=== PATIENT | male | born 1975 | race Caucasian/White ===

== ENCOUNTER 2023-11-22 07:35 | Outpatient (CLI) | payer OTHER, SELFPAY ==
--- NOTE | 2023-11-22 07:47 | ECG_ITS ---
Measurements Intervals [place] Rate: 63 P: 51 MN: 188 QRS: 11 QRSD: 88 T: 50 QT: 370 QTc: 381 Interpretive Statements SINUS RHYTHM NORMAL ECG NO PREVIOUS ECG AVAILABLE FOR COMPARISON Electronically Signed On 11-22-2023 14:43:59 RN ENDOCRINOLOGY by Laurent Barlow M.D.
== END 2023-11-22 07:36 | disposition home or self-care (01) ==
LOC: ANHCARD 07:36
PROVIDERS: PCP Emergency Medicine; Visit Provider Emergency Medicine
DX: R00.2 Palpitations (principal)
CPT/HCPCS: 93005

== ENCOUNTER 2023-12-08 01:28 | Day surgery (SDC) | payer OTHER, SELFPAY ==
[2023-10-21 09:43] VITALS: BMI 25.2
--- NOTE | 2023-12-05 09:13 | SUR.PREOP ---
Patient called regarding upcoming procedure. Voicemail left regarding appointment times.
[2023-12-08 06:47] VITALS: BP 130/87; PULSE 60; RESP 20; TEMP 36.2; O2SAT 100
[2023-12-08] MEDS: LACTATED RINGERS 1,000 ML 150 ML IV CONT (07:00)
--- NOTE | 2023-12-08 07:27 | WPDANESEPPF ---
Anes - Initial Pre Proc Eval Procedure: Operation Date: 12/08/23 08:00 Proposed Procedures p Colonoscopy - Scott Small MD Date/Time: 12/08/23 07:27 Surgeon: Scott Small MD Pre Op Diagnosis: Other fecal abnormalities Patient Data Age: 48 Gender: M Height: 1.93 m Weight: 90.5 kg Last Vital Signs Temp 97.1 F L 12/08/23 06:47 Pulse 60 12/08/23 06:47 Resp 20 12/08/23 06:47 BP 130/87 12/08/23 06:47 Pulse Ox 100 12/08/23 06:47 O2 Del Method Room Air 12/08/23 06:47 Allergies Allergy/AdvReac Type Severity Reaction Status Date / Time No Known Allergies Allergy Mild Verified 12/08/23 06:46 Home Medications Medication Instructions Recorded Confirmed Type testosterone 1 % (50 mg/5 gram) 100 mg transdermal DAILY #5 grams 11/30/20 11/24/23 Rx transdermal gel packet (AndroGel) metoprolol succinate 50 mg 75 mg PO DAILY #135 tabs 08/11/23 11/24/23 Rx tablet,extended release 24 hr (Toprol XL) bupropion HCl 100 mg tablet 100 mg PO BID #180 tabs 11/19/23 11/24/23 Rx allopurinol 300 mg tablet 300 mg PO DAILY 11/24/23 11/24/23 History cholecalciferol (vitamin D3) 25 2,000 unit PO DAILY 11/24/23 11/24/23 History mcg (1,000 unit) capsule (Vitamin D3) sildenafil 50 mg tablet (Viagra) 50 mg PO DAILY PRN Erectile 12/04/23 Rx Dysfunction #30 tabs Patient hx anesthesia problems: none Family hx anesthesia problems: none Results Review: All pre-operative results and documents have been reviewed as part of the pre-operative evaluation. [facility] Past Medical History Medical History Body mass index [BMI] 27.0-27.9, adult (02/27/16) Body mass index [BMI] 28.0-28.9, adult (10/14/17) H/O cancer of gall bladder HTN (hypertension), benign Migraine without aura and with status migrainosus, not intractable Vitamin D deficiency disease Family History Family History Mother Hypertension Social History Social History Smoking status: Never smoker Alcohol intake: current Current Housing: Decline to Answer Concerned About Future Housing: Decline to Answer Difficulty Paying Gas/Electric Bills: Decline to Answer Difficulty Paying for Meds: Decline to Answer Currently Unemployed: Decline to Answer Education: Decline to Answer Difficulty w/ Childcare or Family Care: Decline to Answer Living arrangements: with family Dariana Lynch Final PreProcedure Day of Procedure 12/08/23 07:27 Patient weight: normal Heart: regular rate and rhythm Lungs: clear to auscultation Airway: Mallampati scale class II Neurological: alert and oriented Last oral intake: >/= 8 hours ASA classification: III Emergent: no Anesthetic plan: proceed Anesthesia type and monitoring: general GIVS and standard monitoring Results Review: All pre-operative results and documents have been reviewed as part of the pre-operative evaluation. Informed Consent: The patient's anesthetic plan and its attendant risks and benefits were discussed with the patient/family/POA. Questions were solicited and answers provided to the satisfaction of the patient/family/POA.
--- NOTE | 2023-12-08 07:52 | PM.HPGS ---
History of Present Illness History of Present Illness Consent: Risks, benefits, and alternatives have been discussed and questions answered. Patient agrees to proceed with procedure. Chief complaint: Other fecal abnormalities Narrative: Dano Jasso is a 48 year old male here for first colonoscopy, had + cologuard Review of Systems Constitutional: Constitutional: Denies headache(s) and Denies weakness Eyes: Eyes: Denies blurry vision ENT: Reports Normal hearing present, Denies headache(s) and Denies neck pain Cardiovascular: Cardiovascular: Denies chest pain and Denies dyspnea Respiratory: Respiratory: Denies dyspnea Gastrointestinal: Gastrointestinal: Reports no additional gastrointestinal complaints Genitourinary: Genitourinary: Denies dysuria Musculoskeletal: Musculoskeletal: Denies neck pain Integumentary/Breasts: Skin/Breast: Denies dry skin Neurologic: Reports Normal hearing present, Denies headache(s) and Denies weakness Psychiatric: Psychiatric: Denies anxiety Endocrine: Endocrine: Denies change in body appearance Hematologic/Lymphatic: Hematologic/Lymphatic: Denies easy bleeding Allergic/Immunologic: Allergic/Immunologic: Denies urticaria PMFSH Past Medical History Medical History (Updated 12/08/23 @ 07:54 by Scott Small MD) Body mass index [BMI] 27.0-27.9, adult (02/27/16) Body mass index [BMI] 28.0-28.9, adult (10/14/17) H/O cancer of gall bladder HTN (hypertension), benign Migraine without aura and with status migrainosus, not intractable Positive colorectal cancer screening using Cologuard test Vitamin D deficiency disease Family History Family History Mother Hypertension Social History Social History Smoking status: Never smoker Alcohol intake: current Current Housing: Decline to Answer Concerned About Future Housing: Decline to Answer Difficulty Paying Gas/Electric Bills: Decline to Answer Difficulty Paying for Meds: Decline to Answer Currently Unemployed: Decline to Answer Education: Decline to Answer Difficulty w/ Childcare or Family Care: Decline to Answer Living arrangements: with family Meds Home Medications and Allergies Home Medications Medication Instructions Recorded Confirmed Type testosterone 1 % (50 mg/5 gram) 100 mg transdermal DAILY #5 grams 11/30/20 11/24/23 Rx transdermal gel packet (AndroGel) metoprolol succinate 50 mg 75 mg PO DAILY #135 tabs 08/11/23 11/24/23 Rx tablet,extended release 24 hr (Toprol XL) bupropion HCl 100 mg tablet 100 mg PO BID #180 tabs 11/19/23 11/24/23 Rx allopurinol 300 mg tablet 300 mg PO DAILY 11/24/23 11/24/23 History cholecalciferol (vitamin D3) 25 2,000 unit PO DAILY 11/24/23 11/24/23 History mcg (1,000 unit) capsule (Vitamin D3) sildenafil 50 mg tablet (Viagra) 50 mg PO DAILY PRN Erectile 12/04/23 Rx Dysfunction #30 tabs Allergies Allergy/AdvReac Type Severity Reaction Status Date / Time No Known Allergies Allergy Mild Verified 12/08/23 06:46 Vital Signs Vital Signs - 24 hr 12/08/23 06:47 Temperature 97.1 F L Pulse Rate 60 Respiratory Rate 20 Blood Pressure 130/87 Pulse Oximetry 100 Oxygen Delivery Room Air Exam Const: General: comfortable and no acute distress HENMT: Face/Nose/Sinus: Normal nares present Eyes: General: appearance normal, both eyes and all related structures Neck: Neck: no JVD Resp: Auscultation: clear to auscultation bilaterally Cardio: Rate: regular rate Rhythm: regular rhythm GI: Inspection: non-distended GI Palp: Yes Soft to palpation Skin: General skin exam: normal color Neuro: General: gait normal Speech: normal speech Extrem: General: normal to inspection Psych: Mental Status: mental status grossly normal Assessment and Plan Assessment and plan (1) Positive colorectal cancer scre
[2023-12-08 08:15] VITALS: BP 93/56; PULSE 64; RESP 20; O2SAT 100
[2023-12-08 08:25] VITALS: BP 117/70; PULSE 73; RESP 20; O2SAT 100
[2023-12-08 08:35] VITALS: BP 115/79; PULSE 69; RESP 20; O2SAT 100
== END 2023-12-08 08:48 | disposition home or self-care (01) ==
PROVIDERS: PCP Emergency Medicine; Visit Provider Internal Medicine Gastroenterology
PROC: 0DJD8ZZ Inspection of Lower Intestinal Tract, Via Natural or Artificial Opening Endoscopic (ICD-10-PCS; CPT 45378; principal; 2023-12-08 08:00)
DX: R19.5 Other fecal abnormalities (principal); K64.8 Other hemorrhoids; I10 Essential (primary) hypertension; E55.9 Vitamin D deficiency, unspecified; G43.901 Migraine, unspecified, not intractable, with status migrainosus; Z85.09 Personal history of malignant neoplasm of other digestive organs
CPT/HCPCS: 45378; J2704; J7120

== ENCOUNTER 2024-01-03 20:58 | Emergency (ER) | payer OTHER, SELFPAY ==
--- NOTE | ~2024-01-03 | XR_ITS ---
EXAMINATION: XR chest 2V Exam Date/Time: 01/03/2024 21:25 CDT HISTORY: CP, SOB/ RIGHT SIDED CHEST PAIN . Comparison: 05/12/2005, report only. RESULT: Lines, tubes, and devices: None. Lungs and pleura: Clear. Cardiomediastinal silhouette: Unremarkable. Other: No acute osseous or upper abdominal finding. IMPRESSION: No acute cardiopulmonary process. Reviewed, dictated and finalized at location K.
--- NOTE | 2024-01-03 21:02 | ECG_ITS ---
Measurements Intervals [place] Rate: 53 P: 57 CT: 182 QRS: -16 QRSD: 94 T: 45 QT: 380 QTc: 364 Interpretive Statements SINUS BRADYCARDIA BORDERLINE ECG SEE SCANNED COPY FOR SIGNATURE MTDD
[2024-01-03] MEDS: ASPIRIN 81 MG CHEWABLE TABLET 324 MG PO (21:07)
[2024-01-03 21:08] VITALS: BP 137/89; PULSE 64; RESP 16; TEMP 36.6; O2SAT 100
[2024-01-03 21:12] LABS: Basophils Percent Auto 0.2 % (0.2-1.2); Eosinophils Absolute Auto 0.1 K/mm3 (0-0.3); Eosinophils Percent Auto 2.1 % (0-4.4); Hemoglobin 15.5 g/dL (14.0-18.0); Immature Granulocyte Absolute 0.01 K/mm3 (0.00-0.031); Immature Granulocyte Percent A 0.2 % (0-0.5); Lymphocytes Absolute Auto 1.78 K/mm3 (0.9-3.2); Lymphocytes Percent Auto 28.1 % (18.3-44.2); Mean Corpuscular HGB Conc 34.4 g/dl (32-36); Mean Corpuscular Hemoglobin 31.9 pg (26-34); Mean Corpuscular Volume 92.6 fl (80-100); Monocytes Absolute Auto 0.6 K/mm3 (0.1-0.6); Monocytes Percent Auto 8.7 % (2.6-8.5); Neutrophils Absolute Auto 3.9 K/mm3 (1.3-6.7); Neutrophils Percent Auto 60.7 % (45.5-73.1); Platelet Count Result 169 k/mm3 (150-375); Red Blood Count 4.86 M/mm3 (4.6-6.20); Red Cell Distribution Width 12.8 % (11.5-14.5); White Blood Count 6.3 K/mm3 (4.5-10.0)
[2024-01-03 21:24] LABS: Alanine Aminotransferase 26 U/L (6-50); Albumin Level 4.3 g/dL (3.5-5.1); Alkaline Phosphatase 53 U/L (38-126); Anion Gap 5 mmol/L (4-12); Aspartate Amino Transferase 31 U/L (17-59); Bilirubin,Total 0.7 mg/dL (0.2-1.3); Blood Urea Nitrogen 15 mg/dL (9-20); Calcium 9.2 mg/dL (8.4-10.2); Carbon Dioxide 31 mmol/L (22-30); Chloride 104 mmol/L (98-107); Estimated CRCL calculation 100 ml/min; Estimated Glomerular Filt Rate > 60; Glucose 100 mg/dL (65-110); INR 1.1; Lipase 134 U/L (23-300); Potassium 3.8 mmol/L (3.4-5.0); Prothrombin Time 14.5 Seconds (11.1-14.7); Sodium 140 mmol/L (137-145)
[2024-01-03 21:25] LABS: Partial Thromboplastin Time 30.6 Seconds (22.3-36.8)
[2024-01-03 21:35] LABS: Troponin I < 0.012 ng/mL (0.000-0.034)
[2024-01-03 23:58] VITALS: BP 126/85; PULSE 56; RESP 19; O2SAT 100
--- NOTE | 2024-01-04 00:02 | ED.CHESTPAIN ---
HPI - Chest Pain General Chief Complaint: Chest Pain Stated Complaint: CP, SOB Time Seen by Provider: 01/03/24 23:52 History of Present Illness HPI narrative: 48-year-old male with a history of hypertension and anxiety presents to the emergency department for chest pain that started at 8:30 p.m. this evening. Patient states he was driving the car on his way [facility] when he began having chest pain in the center of his chest. States it traveled up into the upper aspect of his chest and was associated with shortness of breath and nausea. He denies associated diaphoresis or vomiting. States the symptoms lasted a few hours and have improved within the past hour. He states he is no longer nauseous, denies current dyspnea. He states he still has a subtle sensation of pain in his chest. Describes the pain as a sharp sensation. Denies aggravating or alleviating factors. Denies prior cardiac history, family history of cardiac disease, lower extremity edema, recent surgeries or hospitalizations, smoking. Denies abdominal pain, heartburn, vomiting, fever, cough or congestion. Patient does endorse anxiety and states he is currently feeling anxious. States he took Xanax around 1:00 p.m. today not taking anything since. Related Data Home Medications Medication Instructions Recorded Confirmed allopurinol 300 mg tablet 300 mg PO DAILY 11/24/23 12/16/23 cholecalciferol (vitamin D3) 25 2,000 unit PO DAILY 11/24/23 12/16/23 mcg (1,000 unit) capsule (Vitamin D3) Allergies Allergy/AdvReac Type Severity Reaction Status Date / Time No Known Allergies Allergy Mild Verified 01/03/24 21:04 Review of Systems Review of Systems: CONSTITUTIONAL: Denies fever, chills, or sweats. EYES: Denies visual changes, redness, or discharge. ENT: Denies rhinorrhea, congestion, sore throat, or otalgia. CARDIOVASCULAR: See HPI RESPIRATORY: See HPI GASTROINTESTINAL: Denies abdominal pain, nausea, vomiting, or diarrhea. GENITOURINARY: Denies dysuria or hematuria. SKIN: Denies rash or itching. MUSCULOSKELETAL: Denies back pain, joint pain, or myalgia. NEUROLOGIC: Denies headache, numbness, or weakness. PSYCHIATRIC: Denies anxiety or depression. [facility] Past Medical History Medical History Body mass index [BMI] 27.0-27.9, adult (02/27/16) Body mass index [BMI] 28.0-28.9, adult (10/14/17) H/O cancer of gall bladder HTN (hypertension), benign Migraine without aura and with status migrainosus, not intractable Positive colorectal cancer screening using Cologuard test Vitamin D deficiency disease Family History Family History Mother Hypertension Social History Social History Smoking status: Never smoker Alcohol intake: current Current Housing: Decline to Answer Concerned About Future Housing: Decline to Answer Difficulty Paying Gas/Electric Bills: Decline to Answer Difficulty Paying for Meds: Decline to Answer Currently Unemployed: Decline to Answer Education: Decline to Answer Difficulty w/ Childcare or Family Care: Decline to Answer Living arrangements: with family Exam Narrative: GENERAL: Well-appearing, well-nourished, and in no acute distress. Patient resting comfortably in exam bed. He is pleasant and conversational. Speaking in full sentences. Satting 100% on room air in no respiratory distress. HEAD: Normocephalic, atraumatic. EYES: PERRLA and EOMI. ENT: Nares clear, no rhinorrhea or epistaxis. Mucous membranes moist. NECK: Supple. CHEST: Clear to auscultation. No respiratory distress. Tenderness along the anterior chest wall throughout HEART: Regular rate and rhythm. No murmur heard. Normal peripheral pulses. ABDOMEN: Soft, nontender, nondistended, normal active bowel sounds. EXTREMITIES: Normal range of motion. No edema. Negative Homans
[2024-01-04] MEDS: LORazepam (*CRX) 1 MG TABLET PO (00:12)
[2024-01-04 00:13] VITALS: O2SAT 100
[2024-01-04 00:22] LABS: Troponin I < 0.012 ng/mL (0.000-0.034)
[2024-01-04 00:31] LABS: NT Pro B Type Natriuretic Pept 45 pg/mL (19.9-100)
[2024-01-04 01:30] VITALS: BP 132/94; PULSE 60; RESP 14; O2SAT 97
== END 2024-01-04 01:38 | disposition home or self-care (01) ==
LOC: ANHED 01-04 01:21
PROVIDERS: Emergency Medicine; Emergency Provider Physician Assistant; PCP Emergency Medicine
DX: R07.89 Other chest pain (principal); M94.0 Chondrocostal junction syndrome [Tietze]; F41.9 Anxiety disorder, unspecified; R06.02 Shortness of breath; I10 Essential (primary) hypertension; E55.9 Vitamin D deficiency, unspecified; Z85.09 Personal history of malignant neoplasm of other digestive organs; R00.1 Bradycardia, unspecified
CPT/HCPCS: 36415; 71046; 80053; 83690; 83880; 84484; 85025; 85610; 85730; 93005; 99284; A9270

== ENCOUNTER 2025-02-14 19:34 | Emergency (ER) | payer OTHER, SELFPAY ==
[2025-02-14 19:37] VITALS: BP 137/87; PULSE 77; RESP 17; TEMP 36.4; O2SAT 100
--- OUTSIDE RECORDS SUMMARY | 2025-02-14 19:37 | XMS_ITS | Referral Summary ---
Author Organization [facility] Address [address] [place] [address] Care Team Providers Care Trap Operator Name Role Phone Travis Gan MD Primary Care Provide r Allergies No known active allergies Medications allopurinoL (ZYLOPRIM) 300 mg tabletIndicatio ns:prevention of acute gout attack Take 1 tablet (300 mg total) by mouth every morning 2 Active losartan (COZAAR) 50 mg tabletIndicatio ns:hypertension Take 50 mg by mouth every morning 2 Active cholecalciferol (VITAMIN D-3) 2000 unit capsuleIndicati ons:Vitamin D Deficiency Take 1 capsule (2,000 Units total) by mouth every morning Active ibuprofen (ADVIL,MOTRIN) 200 mg tab/cap Take 4 tablet/capsule (800 mg total) by mouth every 8 (eight) hours as needed for pain Active HYDROcodone-carmen taminophen (NORCO) 5-325 mg per tabletIndicatio ns:Pain TAKE 1-2 TABLETS EVERY 6 HOURS NEEDED FOR PAIN 12 tablet 2 Active Additional Information Patient not taking.Reported on 12/02/2023 oxyCODONE (ROXICODONE) 5 mg immediate release tabletIndicatio ns:Pain Take 1 tablet (5 mg total) by mouth every 4 (four) hours as needed for pain 12 tablet 3 Active Additional Information Patient not taking.Reported on 12/02/2023 Active Problems Patient Care Coordination No te Formatting of this note migh t be different from the original. Tinnitus Problem Noted Date Diagnosed Date S/P arthroscopic partial medial meniscectomy 06/2022 Injury of right knee 12/11/2021 Acute pain of right knee 12/11/2021 Tear of medial meniscus of right knee, current 0 12/11/2021 Sprain of medial collateral ligament of right kn ee 12/11/2021 Social History Tobacco Use Types Packs/Day Years Used Date Smoking Tobacco: Never Smokeless Tobacco: Never AUDIT-C Answer Date Recorded Q1: How often do you have a drink containing alc ohol? 2-3 times a week 01/23/2022 Q2: How many drinks containi ng alcohol do you have on a typical day when you are drinking? 5 or 6 01/23/2022 Q3: How often do you have si x or more drinks on one occasion? Never 01/23/2022 Personal Safety Answer Date Recorded Have you ever been in or are you currently in a harmful physical or emotional relationship or is someone making you feel afraid or unsafe? 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 Gender Identity Not on file Sexual Orientation Not on file Last Filed Vital Signs Vital Sign Reading Time Taken Comments Blood Pressure 134/81 12/02/2023 11:29 AM TAPE CUTTING MACHINE OPERATOR Pulse 66 12/02/2023 11:29 AM TAPE CUTTING MACHINE OPERATOR Temperature 36.9 C (98.5 F) 06/19/2023 11:14 AM CDT Respiratory Rate 18 06/19/2023 11:14 AM CDT Oxygen Saturation 96% 06/19/2023 11:14 AM CDT Inhaled Oxygen Concentration - - Weight 93 kg (205 lb) 12/02/2023 11:29 AM TAPE CUTTING MACHINE OPERATOR Height 193 cm (6' 4 ) 12/02/2023 11:29 AM TAPE CUTTING MACHINE OPERATOR Body Mass Index 24.95 12/02/2023 11:29 AM TAPE CUTTING MACHINE OPERATOR Plan of Treatment Not on file Insurance [facility] 9 [employer] SIG [id number] [place] [id number] WORK[employer] COMPENSATION GENERIC Advance Directives For more information, please contact: [phone] * Full Code (Latest Code Status on File) Date Activated Date Inactivated Comments 01/23/2022 1:50 PM 01/23/2022 7:34 PM Care Teams Trap Operator Relationship Specialty Start Date End Date Travis Gan MD [address] [place] [address] PCP - General Emergency Medicine 11/12/21
--- OUTSIDE RECORDS SUMMARY | 2025-02-14 19:37 | XMS_ITS | Clinical Summary ---
Author Organization [facility] Address [address] [place] [address] Care Team Providers Care Psychology Physician Name Role Phone Travis Gan MD Primary [...] collateral ligament of right kn ee 12/11/2021 Surgical History Surgery Date Site/Laterality Comments BLADDER TUMOR EXCISION 09/29/2002 - 09/28/2003 Medical History Medical History Date Comments Cancer (HCC) 2002 bladder s/p tumo r resection Gout Hypertension well controlled Family History Medical History Relation Name Comments Arthritis Father Arthritis Mother Hypertension Mother Anesthesia problems Neg Hx Relation Name Status Comments Father Mother Social History Tobacco Use Types Packs/Day Years [...] on file 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 Gender Identity Not on file Sexual Orientation Not on file Obstetrics History Last Filed Vital Signs Vital Sign Reading Time Taken Comments Blood Pressure 134/81 12/02/2023 11:29 AM HOOP MAKER MACHINE Pulse 66 12/02/2023 11:29 AM HOOP MAKER MACHINE Temperature 36.9 C (98.5 F) 06/19/2023 11:14 AM CDT Respiratory Rate 18 06/19/2023 11:14 AM CDT Oxygen Saturation 96% 06/19/2023 11:14 AM CDT Inhaled Oxygen Concentration - - Weight 93 kg (205 lb) 12/02/2023 11:29 AM HOOP MAKER MACHINE Height 193 cm (6' 4 ) 12/02/2023 11:29 AM HOOP MAKER MACHINE Body Mass Index 24.95 12/02/2023 11:29 AM HOOP MAKER MACHINE Plan of Treatment Health Maintenance Due Date Last Done Comments Colon Cancer Screening-Colonoscopy 1977 Depression Screening 1977 Hepatitis C Screening 1977 DTaP/Tdap/Td Vaccine (1 - Tdap) 02/02/1988 Hepatitis B Screening 1995 Regular Well Visit/Exam 18-64 1995 Influenza Vaccine (Season Ended) 2025 Pneumococcal vaccine <65 Aged Out No longer eligible based on patient's age to complete this topic Insurance [place] [id number] [place] [address] [employer] SIG [id number] [place] [id number] WORKERS COMPENSATION GENERIC Advance Directives For more information, please contact: [phone] * Full Code (Latest Code Status on File) Date Activated Date Inactivated Comments 01/23/2022 1:50 PM 01/23/2022 7:34 PM Care Teams Psychology Physician Relationship Specialty Start Date End Date Travis Gan MD [address] [place] [address] PCP - General Emergency Medicine 11/12/21
--- OUTSIDE RECORDS SUMMARY | 2025-02-14 19:37 | XMS_ITS | Encounter Summary ---
Author Organization [facility] Address [address] [place] [address] Phone Care Team Providers Care Senior Lead Project Manager Name Role Phone Travis Gan MD Primary Care Provide r Encounter Details Date Type Department Care Team (Late st Contact Info) Description 01/24/2022 Documentation [facility] Orthopaedic Surgery [address] [place] [address] Leatha Orr PTA Social History Tobacco Use Types Packs/Day Years [...] more drinks on one occasion? 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
--- OUTSIDE RECORDS SUMMARY | 2025-02-14 19:37 | XMS_ITS | Patient Health Record ---
Author Organization [facility] [employer] Address [address] [place] [address] Care Team Providers Care Cold Mill Inspector Name Role Phone Travis Gan MD Primary Care Provider Unavail able Margot Cortez Unavailable [phone] Yamile Carlisle Unavailable [phone] Migration, Provider Unavailable Unavailable Allergies No Known Allergies Reason For Referral No Information Medications Medication SIG (Take, Route, Frequency, Duration) Notes Start Date End Date Status TADALAFIL 5 MG TABLET *Reorder from [employer] for eRx and Interaction Alerts* 01/30/2024 Unknown Losartan Potassium 100 MG Oral 01/30/2024 Unknown ALPRAZolam 0.5 MG Oral Ac tive Auvelity 45-105 MG 1 tablet Oral twice a day for 90 days pt has copay card Active Social History Tobacco Use: Social History Observation Description Date Details (start date - stop date) Never Smoker NA - NA Sex Assigned At : Social History Observation Description Sex Assigned At Male Tobacco Control (Standard) Question Answer Notes Tobacco use: Nonsmoker Problems Problem Type SNOMED Code ICD Code Onset Dates Problem Status W/U Status Risk Notes Problem Severe recurrent major depression without psychotic features (13480516) Major depressive disorder, recurrent severe without psychotic features (F33.2) Active confirmed Problem Generalized anxiety disorder (75201762) Generalized anxiety disorder (F41.1) Active confirmed Vital Signs Heart Rate 60 /min 11/26/2024 Blood pressure diastolic 82 mm Hg 11/26/2024 Height-cm 193.04 cm 11/26/2024 Weight-kg 86.64 kg 11/26/2024 Height 76.00 in 11/26/2024 Blood pressure systolic 133 mm Hg 11/26/2024 Weight 191 lbs 11/26/2024 BMI 23.25 kg/m2 11/26/2024 Encounters Encounter Location Date Provider Diagnosis [facility] [address] [place] [address] 04/16/2024 Yamile Hemann Major depressive disorder, recurrent severe without psychotic features F33.2 and Generalized anxiety disorder F41.1 [facility] [address] [place] [address] 03/05/2024 Margot Kurilla Major depressive disorder, recurrent severe without psychotic features F33.2 and Generalized anxiety disorder F41.1 [facility] [address] [place] [address] 03/05/2024 Yamile Hemann Major depressive disorder, recurrent severe without psychotic features F33.2 and Generalized anxiety disorder F41.1 [facility] [address] [place] [address] 03/19/2024 Yamile Hemann Major depressive disorder, recurrent severe without psychotic features F33.2 and Generalized anxiety disorder F41.1 [facility] [address] [place] [address] 04/06/2024 Yamile Hemann Major depressive disorder, recurrent severe without psychotic features F33.2 and Generalized anxiety disorder F41.1 [facility] [address] [place] [address] 04/16/2024 Margot Kurilla Major depressive disorder, recurrent severe without psychotic features F33.2 and Generalized anxiety disorder F41.1 [facility] [address] [place] [address] 04/30/2024 Yamile Hemann Major depressive disorder, recurrent severe without psychotic features F33.2 and Generalized anxiety disorder F41.1 [facility] [address] [place] [address] 05/14/2024 Yamile Hemann Major depressive disorder, recurrent severe without psychotic features F33.2 and Generalized anxiety disorder F41.1 [facility] [address] [place] [address] 05/14/2024 Margot Kurilla Major depressive disorder, recurrent severe without psychotic features F33.2 and Generalized anxiety disorder F41.1 [facility] [address] [place] [address] 05/28/2024 Yamile Hemann Major depressive disorder, recurrent severe without psychotic features F33.2 and Generalized anxiety disorder F41.1 [facility] [address] [place] [address] 06/09/2024 Margot Kurilla Major depressive disorder, recurrent severe without psychotic features F33.2 and Generalized anxiety disorder F41.1 [facility], [facility] [address] [place] [address] 06/18/2024 Yamile Hemann Major depressive disorder, recurrent severe without psychotic features F33.2 and Generalized anxiety disorder F41.1 [facility], [facility] [address] [place] [address] 06/25/2024 Yamile Hemann Major depressive disorder, recurrent severe without psychotic features F33.2 and Generalized anxiety disorder F41.1 [facility] [address] [place] [address] 08/30/2024 Yamile Hemann Major depressive disorder, recurrent severe without psychotic features F33.2 and Generalized anxiety disorder F41.1 [facility], [facility] [address] [place] [address] 09/03/2024 Margot Kurilla Major depressive disorder, recurrent severe without psychotic features F33.2 and Generalized anxiety disorder F41.1 [facility], [facility] [address] [place] [address] 10/01/2024 Yamile Hemann Major depressive disorder, recurrent severe without psychotic features F33.2 and Generalized anxiety disorder F41.1 [facility], [facility] [address] [place] [address] 10/22/2024 Yamile Hemann Major depressive disorder, recurrent severe without psychotic features F33.2 and Generalized anxiety disorder F41.1 [facility], [facility] [address] [place] [address] 10/29/2024 Margot Kurilla Major depressive disorder, recurrent severe without psychotic features F33.2 and Generalized anxiety disorder F41.1 [facility], [facility] [address] [place] [address] 11/12/2024 Yamile Hemann Major depressive disorder, recurrent severe without psychotic features F33.2 and Generalized anxiety disorder F41.1 [place] [address] [address] 11/26/2024 Yamile Hemann Major depressive disorder, recurrent severe without psychotic features F33.2 and Generalized anxiety disorder F41.1 [place] [address] [address] 11/26/2024 Margot Kurilla Major depressive disorder, recurrent severe without psychotic features F33.2 and Generalized anxiety disorder F41.[address] [address] 12/10/2024 Yamile Hemann Major depressive disorder, recurrent severe without psychotic features F33.2 ; Generalized anxiety disorder F41.1 and Encounter for screening for depression Z13.[address] [address] 12/31/2024 Yamile Hemann Major depressive disorder, recurrent severe without psychotic features F33.2 and Generalized anxiety disorder F41.[address] [address] 02/15/2024 Provider Migration [place] [address] [address] [facility] [address] [address] 10/11/2024 Margot Cortez Major depressive disorder, recurrent severe without psychotic features F33.2 Assessments Encounter Date Diagnosis (ICD Code) Assessment Notes Treatment Notes Treatment Clinical Notes Section Notes 03/05/2024 Major depressive disorder, recurrent severe without psychotic features (ICD-10 - F33.2) Stop fluoxetine per patient due to side effects. Wants to wait to start another medication for anxiety, re-evaluate after established in counseling. 03/05/2024 Generalized anxiety disorder (ICD-10 - F41.1) Wellbutrin and alprazolam per PCP 03/05/2024 Major depressive disorder, recurrent severe without psychotic features (ICD-10 - F33.2) 03/05/2024 Generalized anxiety disorder (ICD-10 - F41.1) 03/19/2024 Major depressive disorder, recurrent severe without psychotic features (ICD-10 - F33.2) 03/19/2024 Generalized anxiety disorder (ICD-10 - F41.1) 04/06/2024 Major depressive disorder, recurrent severe without psychotic features (ICD-10 - F33.2) 04/06/2024 Generalized anxiety disorder (ICD-10 - F41.1) 04/16/2024 Major depressive disorder, recurrent severe without psychotic features (ICD-10 - F33.2) 04/16/2024 Generalized anxiety disorder (ICD-10 - F41.1) 04/16/2024 Major depressive disorder, recurrent severe without psychotic features (ICD-10 - F33.2) Discontinue fluoxetine. Restart sertraline 50 mg daily for anxiety, mood. Patient educated on all medications including potential benefits, side effects, risks. Educated on proper dosing schedule and importance of compliance. 04/30/2024 Major depressive disorder, recurrent severe without psychotic features (ICD-10 - F33.2) 04/30/2024 Generalized anxiety disorder (ICD-10 - F41.1) 05/14/2024 Major depressive disorder, recurrent severe without psychotic features (ICD-10 - F33.2) 05/14/2024 Generalized anxiety disorder (ICD-10 - F41.1) 05/14/2024 Major depressive disorder, recurrent severe without psychotic features (ICD-10 - F33.2) 05/28/2024 Major depressive disorder, recurrent severe without psychotic features (ICD-10 - F33.2) 05/28/2024 Generalized anxiety disorder (ICD-10 - F41.1) 06/09/2024 Major depressive disorder, recurrent severe without psychotic features (ICD-10 - F33.2) 06/18/2024 Major depressive disorder, recurrent severe without psychotic features (ICD-10 - F33.2) 06/18/2024 Generalized anxiety disorder (ICD-10 - F41.1) 06/25/2024 Major depressive disorder, recurrent severe without psychotic features (ICD-10 - F33.2) 06/25/2024 Generalized anxiety disorder (ICD-10 - F41.1) 08/30/2024 Major depressive disorder, recurrent severe without psychotic features (ICD-10 - F33.2) 08/30/2024 Generalized anxiety disorder (ICD-10 - F41.1) 09/03/2024 Major depressive disorder, recurrent severe without psychotic features (ICD-10 - F33.2) Electronic Prior Authorization was requested for Auvelity 45-105 MG Tablet Extended Release. Provider can order medication once approval received. 10/01/2024 Major depressive disorder, recurrent severe without psychotic features (ICD-10 - F33.2) 10/01/2024 Generalized anxiety disorder (ICD-10 - F41.1) 10/11/2024 Major depressive disorder, recurrent severe without psychotic features (ICD-10 - F33.2) 10/22/2024 Major depressive disorder, recurrent severe without psychotic features (ICD-10 - F33.2) 10/22/2024 Generalized anxiety disorder (ICD-10 - F41.1) 10/29/2024 Major depressive disorder, recurrent severe without psychotic features (ICD-10 - F33.2) 11/12/2024 Major depressive disorder, recurrent severe without psychotic features (ICD-10 - F33.2) 11/12/2024 Generalized anxiety disorder (ICD-10 - F41.1) 11/26/2024 Major depressive disorder, recurrent severe without psychotic features (ICD-10 - F33.2) 11/26/2024 Generalized anxiety disorder (ICD-10 - F41.1) 11/26/2024 Major depressive disorder, recurrent severe without psychotic features (ICD-10 - F33.2) 12/10/2024 Major depressive disorder, recurrent severe without psychotic features (ICD-10 - F33.2) 12/10/2024 Generalized anxiety disorder (ICD-10 - F41.1) 12/31/2024 Major depressive disorder, recurrent severe without psychotic features (ICD-10 - F33.2) 12/31/2024 Generalized anxiety disorder (ICD-10 - F41.1) 11/26/2024 Generalized anxiety disorder (ICD-10 - F41.1) alprazolam per PCP 10/29/2024 Generalized anxiety disorder (ICD-10 - F41.1) alprazolam per PCP 09/03/2024 Generalized anxiety disorder (ICD-10 - F41.1) Wellbutrin and alprazolam per PCP 06/09/2024 Generalized anxiety disorder (ICD-10 - F41.1) Wellbutrin and alprazolam per PCP 05/14/2024 Generalized anxiety disorder (ICD-10 - F41.1) Wellbutrin and alprazolam per PCP 04/16/2024 Generalized anxiety disorder (ICD-10 - F41.1) Wellbutrin and alprazolam per PCP 12/10/2024 Encounter for screening for depression (ICD-10 - Z13.31) 05/14/2024 Other Stable, continue sertraline 50mg daily for mood. Patient educated on all medications including potential benefits, side effects, risks. Educated on proper dosing schedule and importance of compliance. Continue counseling with Yamile. 06/09/2024 Other Stable, continue current medication. Patient educated on all medications including potential benefits, side effects, risks. Educated on proper dosing schedule and importance of compliance. Continue counseling with Yamile. 09/03/2024 Other Discontinue Welllbutrin 100mg BID Start Auvelity-take one tablet daily for four days then one tablet twice daily 6-8 hours apart. Patient educated on all medications including potential benefits, side effects, risks. Educated on proper dosing schedule and importance of compliance. Continue counseling with Yamile. 10/29/2024 Other Cont current medications. Refills sent in. Patient educated on all medications including potential benefits, side effects, risks. Educated on proper dosing schedule and importance of compliance. Supportive therapy provided Cont counseling with Yamile -Assessment and treatment plan reviewed with patient. -Compliance with treatment plan importance discussed. -Discussed the risks/benefits of this medication -Discussed medication side effects. -Contact office if symptoms worsen. -Discussed that it can take up to 6-8 weeks to see full therapeutic effects of psychotropic medications. -Crisis prevention hotline 988. 11/26/2024 Other Discontinue sertraline, pt has been off of this for about two weeks, no noteable change. Patient educated on all medications including potential benefits, side effects, risks. Educated on proper dosing schedule and importance of compliance. -Assessment and treatment plan reviewed with patient. -Compliance with treatment plan importance discussed. -Discussed the risks/benefits of this medication -Discussed medication side effects. -Contact office if symptoms worsen. -Discussed that it can take up to 6-8 weeks to see full therapeutic effects of psychotropic medications. -Crisis prevention hotline 988. Plan Of Treatment Next Appt Details Provider Name:Yamile Carlisle, 02/18/2025 09:00:00 AM, [address], [place], [address], Provider Name:Margot phillips, 02/18/2025 11:00:00 AM, [address], [place], [address], Insurance Providers Payer Name Payer Address Payer Phone Subscriber Number Group Number Insured Name Patient Relationship to Insured Coverage Start Date Coverage End Date [facility] [address] [facility] [place] [address] [id number] [place] ANN Self - patient is the insured Medical (General) History Medical History History ICD Code Problems: Generalized anxiety disorder Severe recurrent major depression withou t psychotic features ,
--- OUTSIDE RECORDS SUMMARY | 2025-02-14 19:37 | XMS_ITS | Continuity of Care Document ---
Author Organization Located within [facility] Address [address] [place] [address] [place] [address] Phone Care Team Providers Care Utility Manager Name Role Phone Caleb Moore DO Unavailable Unavailable Advance Directives Directive Yes / No Effective Date File Name No Information Encounters Encounter Description Practice Location Reason(s) For Visit Diagnoses Date Provider Providers Copied on Encounter [facility], [address] [place] [address] [address], [place], [place], [id number], [place] tel:[phone] [facility] [place] No Information Teresa Fritz. [address] [facility], [place], [address], [place]. tel: [phone] Family History Family Member Type Diagnosis Age At Onset No Information Payers Payer name Insurance type Covered libertarian ID Authoriza tion(s) [employer] SOI CI [id number] Social History Type Description Quantity Date Captured Comments Sex Male Smoking Status No Information Chief Complaint And Reason For Visit No Information Reason For Referral Reason For Referral No Information History Of Present Illness Encounter Date Complaint History Of Prese nt Illness No Information Functional Status Date Functional Assessmen t No Information Instructions Date Instruction Additional Infor mation No Information Assessments Type Assessment Date No Information Patient Care Teams Name Effective Dates (start - stop) Status Members No Information
[2025-02-14 20:02] VITALS: BP 127/83; PULSE 76; RESP 18; O2SAT 99
[2025-02-14] MEDS: KETOROLAC 30 MG/ML VIAL (*BKC) 15 MG IM (20:30)
[2025-02-14] MEDS: METOCLOPRAMIDE HCL INJ 10 MG/2 ML VIAL IM (20:30)
--- OUTSIDE RECORDS SUMMARY | 2025-02-14 20:41 | XMS_ITS | Clinical Summary ---
Author Organization [facility] Address [address] [place] [address] Care Team Providers Care Branner Machine Tender Name Role Phone Travis Gan MD Primary [...] on file Legal Sex Male 12:44 PM SALES REPRESENTATIVE DOOR TO DOOR Gender Identity Not on file Sexual Orientation Not on file Obstetrics History Last Filed Vital Signs Vital Sign Reading Time Taken Comments Blood Pressure 134/81 12/02/2023 11:29 AM SALES REPRESENTATIVE DOOR TO DOOR Pulse 66 12/02/2023 11:29 AM SALES REPRESENTATIVE DOOR TO DOOR Temperature 36.9 C (98.5 F) 06/19/2023 11:14 AM CDT Respiratory Rate 18 06/19/2023 11:14 AM CDT Oxygen Saturation 96% 06/19/2023 11:14 AM CDT Inhaled Oxygen Concentration - - Weight 93 kg (205 lb) 12/02/2023 11:29 AM SALES REPRESENTATIVE DOOR TO DOOR Height 193 cm (6' 4 ) 12/02/2023 11:29 AM SALES REPRESENTATIVE DOOR TO DOOR Body Mass Index 24.95 12/02/2023 11:29 AM SALES REPRESENTATIVE DOOR TO DOOR Plan of Treatment Health Maintenance Due Date Last Done Comments Colon Cancer Screening-Colonoscopy 1977 Depression Screening 1977 Hepatitis C Screening 1977 DTaP/Tdap/Td Vaccine (1 - Tdap) 02/02/1988 Hepatitis B Screening 1995 Regular Well Visit/Exam 18-64 1995 Influenza Vaccine (Season Ended) 2025 Pneumococcal vaccine <65 Aged Out No longer eligible based on patient's age to complete this topic Insurance [place] [id number] [place] [address] [employer] SIG [id number] [place] [id number] WORKERS [employer]ENSATION GENERIC Advance Directives For more information, please contact: [phone] * Full Code (Latest Code Status on File) Date Activated Date Inactivated Comments 01/23/2022 1:50 PM 01/23/2022 7:34 PM Care Teams Branner Machine Tender Relationship Specialty Start Date End Date Travis Gan MD [address] [place] [address] PCP - General Emergency Medicine 11/12/21
--- OUTSIDE RECORDS SUMMARY | 2025-02-14 20:41 | XMS_ITS | Encounter Summary ---
Author Organization [facility] Address [address] [place] [address] Phone Care Team Providers Care Mail Censor Name Role Phone Travis Gan MD Primary Care Provide r Encounter Details Date Type Department Care Team (Late st Contact Info) Description 01/24/2022 Documentation [facility] Orthopaedic Surgery [address] [facility] [address] [place] [address] Leatha Orr PTA Social History Tobacco Use [...] on file Legal Sex Male 12:44 PM BAKER SECOND Gender Identity Not on file Sexual Orientation Not on file documented as of this encounter Plan of Treatment Not on file documented as of this encounter Visit Diagnoses Not on filedocumented in this encounter Care Teams Mail Censor Relationship Specialty Start Date End Date Travis Gan MD [address] [place] [address] PCP - General Emergency Medicine 11/12/21 documented as of this encounter
--- OUTSIDE RECORDS SUMMARY | 2025-02-14 20:41 | XMS_ITS | Referral Summary ---
Author Organization [facility] Center Address [address] [place] [address] Care Team Providers Care Senior Information Developer Name Role Phone Travis Gan MD Primary [...] on file Legal Sex Male 12:44 PM ASSISTANT HAIRSTYLIST Gender Identity Not on file Sexual Orientation Not on file Last Filed Vital Signs Vital Sign Reading Time Taken Comments Blood Pressure 134/81 12/02/2023 11:29 AM ASSISTANT HAIRSTYLIST Pulse 66 12/02/2023 11:29 AM ASSISTANT HAIRSTYLIST Temperature 36.9 C (98.5 F) 06/19/2023 11:14 AM CDT Respiratory Rate 18 06/19/2023 11:14 AM CDT Oxygen Saturation 96% 06/19/2023 11:14 AM CDT Inhaled Oxygen Concentration - - Weight 93 kg (205 lb) 12/02/2023 11:29 AM ASSISTANT HAIRSTYLIST Height 193 cm (6' 4 ) 12/02/2023 11:29 AM ASSISTANT HAIRSTYLIST Body Mass Index 24.95 12/02/2023 11:29 AM ASSISTANT HAIRSTYLIST Plan of Treatment Not on file Insurance [facility] 9 [employer] SIG [id number] [place] [id number] WORKERS COMPENSATION GENERIC Member Subscriber Plan / Payer (Ef fective 2021-Present) Name:Dano Jasso Member ID:Not on file Relation to Subscriber:Employee Name:[employer] Address: [id number] [place] [address] Payer ID:[id number] Group ID:Not on file Type:WORKERS COMPENSATION Address: [facility] [address] [place] [address] Advance Directives For more information, please contact: [phone] * Full Code (Latest Code Status on File) Date Activated Date Inactivated Comments 01/23/2022 1:50 PM 01/23/2022 7:34 PM Care Teams Senior Information Developer Relationship Specialty Start Date End Date Travis Gan MD [address] [place] [address] PCP - General Emergency Medicine 11/12/21
--- OUTSIDE RECORDS SUMMARY | 2025-02-14 20:41 | XMS_ITS | Continuity of Care Document ---
Author Organization [facility] Address [address] [place] [address] [place] [address] Phone Care Team Providers Care Hook Up Name Role Phone Caleb Moore DO Unavailable Unavailable Advance Directives Directive Yes / No Effective Date File Name No Information Encounters Encounter Description Practice Location Reason(s) For Visit Diagnoses Date Provider Providers Copied on Encounter [facility], [address] [place] [address] [address], [place], [place], [address], [place] tel:[phone] [facility] No Information Teresa Fritz. [address] [facility], [place], [address], [place]. tel: [phone] Family History Family Member Type Diagnosis Age At Onset No Information Payers Payer name Insurance type Covered alliance party ID Authoriza tion(s) [employer] SOI CI [id number] Social History Type Description Quantity Date Captured [...]
[2025-02-14 21:24] VITALS: BP 108/65; PULSE 71; RESP 18; O2SAT 97
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
== END 2025-02-14 21:25 | disposition home or self-care (01) ==
PROVIDERS: Emergency Provider Emergency Medicine; PCP Emergency Medicine
DX: G44.309 Post-traumatic headache, unspecified, not intractable (principal); F07.81 Postconcussional syndrome; I10 Essential (primary) hypertension; Z85.09 Personal history of malignant neoplasm of other digestive organs
CPT/HCPCS: 96372; 99284; J1885; J2765